=== PATIENT | male | born 1980 | race Caucasian/White ===

== ENCOUNTER → 2016-12-07 | Outpatient (REF) ==
--- NOTE | 2016-12-07 12:28 | REP ---
PARTIAL LUMBAR SPINE, THREE VIEWS: HISTORY: Degenerative disc disease. COMPARISON: 01/27/2015 There is no acute fracture or subluxation. A rudimentary disc is present at the S1-2 level. The L4-5 intervertebral disc is decreased in height consistent with disc degeneration. An osteophyte is present on L4. IMPRESSION: Degenerative change as described above. Signed by Dale Rios MD 12/07/2016 12:33 P
== END ==
LOC: M SMT 10:41
PROVIDERS: ATTEND Internal Medicine
DX: M51.36 Other intervertebral disc degeneration, lumbar region (principal)

== ENCOUNTER → 2017-04-12 | Outpatient (CLI) | payer SELFPAY | LOC: M OUTALCOH 12:15 | DX: F10.10 Alcohol abuse, uncomplicated (principal) ==

== ENCOUNTER 2017-04-19 11:17 | Outpatient (RCR) | payer SELFPAY | END 2017-05-17 | LOC: M OUTALCOH 11:17 | DX: Z03.89 Encounter for observation for other suspected diseases and conditions ruled out (principal); F17.200 Nicotine dependence, unspecified, uncomplicated ==